=== PATIENT | female | born 1995 ===

== ENCOUNTER 2017-10-13 14:07 | Emergency (ER) | payer BC, MEDICAID ==
[2017-10-13 14:41] VITALS: BP 112/78
--- NOTE | 2017-10-13 15:33 | UC ---
Respiratory Complaint HPI - HPI Summary HPI Summary: 22 year old female with on significant pmhx here with complaint of sore throat and cough. Reports cough started last week, now resolved. But reports sore throat and fever for the past few days. She has been taking tylenol for the fever. Reports temp of 104. She also reports rhinorrhea and diarrhea in the past few days. - History of Current Complaint Chief Complaint: UCRespiratory Stated Complaint: SORE THROAT Time Seen by Provider: 10/13/17 15:03 Hx Last Menstrual Period: implant Onset/Duration: Sudden Onset Severity Initially: Mild Severity Currently: Mild Character: Cough: Nonproductive Aggravating Factors: Nothing Alleviating Factors: OTC Meds Associated Signs And Symptoms: Positive: Negative - Allergies/Home Medications Allergies/Adverse Reactions: Allergies Allergy/AdvReac Type Severity Reaction Status Date / Time No Known Allergies Allergy Verified 10/13/17 14:37 PMH/Surg Hx/FS Hx/Imm Hx Previously Healthy: Yes - Surgical History Surgical History: Yes Surgery Procedure, Year, and Place: as infant anoplasty - Social History Alcohol Use: None Substance Use Type: None Smoking Status (MU): Former Smoker - Immunization History Vaccination Up to Date: Yes Review of Systems Constitutional: Fever, Chills Skin: Negative Eyes: Negative ENT: Sore Throat, Nasal Discharge Respiratory: Cough Cardiovascular: Negative Gastrointestinal: Negative Genitourinary: Negative Motor: Negative Neurovascular: Negative Musculoskeletal: Negative Neurological: Negative Psychological: Negative All Other Systems Reviewed And Are Negative: Yes Physical Exam Triage Information Reviewed: Yes Appearance: Well-Appearing, No Pain Distress Vital Signs: Initial Vital Signs Temp 37.2 C 10/13/17 14:38 BP 112/78 10/13/17 14:38 Pulse Ox 100 10/13/17 14:38 ENT: Positive: Pharyngeal erythema, Tonsillar swelling, Tonsillar exudate, Uvula midline Neck: Positive: Supple, Nontender, No Lymphadenopathy Respiratory: Positive: Chest non-tender, Lungs clear, Normal breath sounds, No respiratory distress Cardiovascular: Positive: RRR, No Murmur, Pulses Normal Abdomen Description: Positive: Nontender, No Organomegaly, Soft Neurological: Positive: Alert UC Diagnostic Evaluation - Laboratory O2 Sat by Pulse Oximetry: 100 Respiratory Course/Dx - Course Course Of Treatment: Signs and symptoms c/w viral illness. Rapid strep negative. Treat with decadron for pharyngitis. Symptomatic treatment. - Differential Dx/Diagnosis Differential Diagnosis/HQI/PQRI: Laryngitis, Lower Resp Infection, Sinusitis Provider Diagnoses: Viral pharyngitis Discharge - Discharge Plan Condition: Good Disposition: HOME Prescriptions: Benzonatate CAP* [Tessalon 100 MG CAP*] 100 mg PO TID PRN #20 cap PRN Reason: Cough Ibuprofen [Advil] 400 mg PO Q6HR PRN #40 tab PRN Reason: Fever Patient Education Materials: Pharyngitis (ED) Referrals: No Primary Care Phys,NOPCP [Primary Care Provider] -
[2017-10-13] MEDS: Dexamethasone IV* 4 MG/ML 1 ML (4 MG) IM ONE (15:42)
== END 2017-10-13 16:00 | disposition home or self-care (01) ==
LOC: UCEAST 14:07
DX: J02.8 Acute pharyngitis due to other specified organisms (principal)
CPT/HCPCS: 87651; 96372; 99212; G0463; J1100